=== PATIENT | female | born 1990 | race Native Hawaiian/Other Pacific Islander ===

== ENCOUNTER 2017-04-24 21:15 | Emergency (ER) | payer OTHER ==
--- NOTE | 2017-04-24 21:42 | ED Physician Documentation ---
Fall - HISTORIAN Historian: patient, spouse - [facility] Stated Complaint: fall back and shoulder pain Chief Complaint: Fall Additional Information: Tripped over concrete parking block 30 minutes ago at [employer]. Landed on left side and back. Says she hurts all over but "nothing is broken." Did not hit head , no LOC. Pain chiefly Left side from shoulder to toes. No meds taken. Stiffens or withdraws when examiner nearby. Denies numbness or tingling. Has been walking. No other modifying factors or associated signs. Location of Pain/Injury: lower back, L shoulder - ROS CONST: no problems NEURO: anxiety (tylenol makes it worse) - PAST HX Past History: none Allergies/Adverse Reactions: Allergies Allergy/AdvReac Type Severity Reaction Status Date / Time Penicillins Allergy Severe Hives Verified 04/24/17 22:19 Home Medications: Ambulatory Orders Medication Instructions Recorded Albuterol Sulfate [ProAir 1 puff INH DIRECTED 04/24/17 RespiClick] Cyclobenzaprine HCl [Flexeril] 10 mg PO HS #7 tablet 04/24/17 - SOCIAL HX Smoking History: non-smoker - FAMILY HX Family History: cardiac disease (in 60's) - VITAL SIGNS Vital Signs: Vital Signs Temp Pulse Resp BP Pulse Ox 98 F 71 16 90/58 99 04/24/17 21:15 04/24/17 21:15 04/24/17 21:15 04/24/17 21:15 04/24/17 21:15 - REVIEWED ASSESSMENTS Nursing Assessment Reviewed: Yes Vitals Reviewed: Yes Progress - Progress Progress: Report Submission Date: Apr 24, 2017 10:21:28 PM MANAGER FRONT Patient Study Name: ZEUS ZALDIVAR Date: Apr 24, 2017 9:59:17 PM MANAGER FRONT Modality Type: DX Gender: F Description: SPINE : 89 Institution: [facility] Physician: JABIER LICEA - ER Three-view lumbar spine CLINICAL HISTORY: Fall. Low back pain. FINDINGS: Examination of the lumbar spine in AP, lateral and lateral coned-down views demonstrates minimal dextroscoliosis. There is no evident fracture or dislocation. Transitional thoracolumbar and lumbosacral segments are demonstrated. IMPRESSION: Minimal dextroscoliosis possibly related to muscle spasm. No fracture. Electronically signed on Apr 24, 2017 10:21:28 PM MANAGER FRONT by: Darius Moreno Report Submission Date: Apr 24, 2017 10:22:00 PM MANAGER FRONT Patient Study Name: ZEUS ZALDIVAR Date: Apr 24, 2017 10:08:23 PM MANAGER FRONT Modality Type: DX Gender: F Description: SHOULDER : 89 Institution: [facility] Physician: JABIER LICEA - ER Three-view left shoulder CLINICAL HISTORY: Fall. Pain. FINDINGS: Examination left shoulder in multiple views fails to demonstrate evidence of fracture, dislocation or other bone or joint pathology. Electronically signed on Apr 24, 2017 10:22:00 PM MANAGER FRONT by: Darius Moreno ED Results Lab/Radiology - Orders Orders: ED Orders Category Date Time Status LUMBAR SPINE XR 2 OR 3 VIEWS [L SPINE 2 OR 3 VIEWS] [ Exams 04/24/17 Ordered RAD] Stat SHOULDER 2 VIEWS OR MORE [RAD] Stat Exams 04/24/17 Ordered HCG [URINE HCG] Stat Lab 04/24/17 Uncollected Fall Physical Exam - Physical Exam General Appearance: alert, mild distress Head: no swelling, no obvious injury Neck: painless ROM, trachea midline. No: pain with neck movement Eye: lids & conjunct. nml ENT: nml external inspection, no oral injury, airway nml Resp/CVS: chest non-tender, no ecchymosis, breath sounds nml, heart sounds nml Abdomen: soft, normal bowel sounds, no distension, non-tender Neuro: CN's nml as tested, sensation nml, motor nml, reflexes nml, other (can dorsiflex 1st toes against resistance (reluctantly)) Skin: color nml, no rash, other (no abrasions, no erythema). No: ecchymosis Back: normal inspection, other (abdullahi-tenderness/withdrawal) Extremities: atraumatic, pelvis stable, no pedal edema, nml ROM, other (SLR negative bilaterally t o90 degrees except left toe discomfort voiced) Joint: joints nml, nml ROM, Nml gait/weight bearing Discharge Clincal Impression: Fall Qualifiers: Encounter type: initial encounter Qualified Code(s): W19.XXXA - Unspecified fall, initial encounter Contusion Qualifiers: Encounter type: initial encounter Contusion area: lower back Qualified Code(s) : S30.0XXA - Contusion of lower back and pelvis, initial encounter Prescriptions: Cyclobenzaprine HCl [Flexeril] 10 mg PO HS #7 tablet Referrals: Primary Doctor,No [Primary Care Provider] - 2 Days Additional Instructions: Ice to the sore areas for 20 minutes of each hour you are awake for 5 days. After 24 hours, you could apply gentle heat. You can take two Aleve every 12 hours with food for 5 days. The muscle relaxant at bedtime will help you get better sleep and feel better. Your prescription is at [facility]. Condition: Good Disposition: 01 HOME, SELF-CARE Decision to Admit: NO Decision Time: 22:30
[2017-04-24] MEDS ORDERED: ORPHENADRINE CITRATE 60 MG/2ML IM ONE (22:23)
[2017-04-24] MEDS ORDERED: KETOROLAC TROMETHAMINE 60 MG/2 ML VIAL IM ONE (22:23)
[2017-04-24 22:38] VITALS: BP 96/55
--- NOTE | 2017-04-25 06:49 | Diagnostic Imaging Report ---
JABIER LICEA [facility] [address] [facility] [address] [address] Report Submission Date: Apr 24, 2017 10:21:28 PM CONTRACTS [place] Patient Study Name: ZEUS ZALDIVAR Date: Apr 24, 2017 9:59:17 PM [employer] Modality Type: DX Gender: F Description: SPINE : 89 Institution: [facility] Physician: JABIER LICEA Three-view lumbar spine CLINICAL HISTORY: Fall. Low back pain. FINDINGS: Examination of the lumbar spine in AP, lateral and lateral coned-down views demonstrates minimal dextroscoliosis. There is no evident fracture or dislocation. Transitional thoracolumbar and lumbosacral segments are demonstrated. IMPRESSION: Minimal dextroscoliosis possibly related to muscle spasm. No fracture. Electronically signed on Apr 24, 2017 10:21:28 PM [employer] [place] by: Darius THOMSON
--- NOTE | 2017-04-25 06:49 | Diagnostic Imaging Report ---
JABIER LICEA [facility] [address] [facility] [address] [address] Report Submission Date: Apr 24, 2017 10:22:00 PM ELECTRICAL DESIGN TECHNICIAN Patient Study Name: ZEUS ZALDIVAR Date: Apr 24, 2017 10:08:23 PM ELECTRICAL DESIGN TECHNICIAN Modality Type: DX Gender: F Description: SHOULDER : 89 Institution: [facility] Physician: JABIER LICEA Three-view left shoulder CLINICAL HISTORY: Fall. Pain. FINDINGS: Examination left shoulder in multiple views fails to demonstrate evidence of fracture, dislocation or other bone or joint pathology. Electronically signed on Apr 24, 2017 10:22:00 PM ELECTRICAL DESIGN TECHNICIAN by: Darius THOMSON
== END 2017-04-24 22:33 | disposition home or self-care (01) ==
LOC: ED 21:15
DX: S30.0XXA Contusion of lower back and pelvis, initial encounter (principal); W01.0XXA Fall on same level from slipping, tripping and stumbling without subsequent striking against object, initial encounter; Y93.9 Activity, unspecified; Y92.512 Supermarket, store or market as the place of occurrence of the external cause; Y99.9 Unspecified external cause status
CPT/HCPCS: 72100; 73030; J1885; J2360; 96372; 99283